=== PATIENT | male | born 1985 | race Hispanic/Latino ===

== ENCOUNTER 2023-11-13 16:11 | Emergency (ER) | payer SELFPAY ==
[2023-11-13 17:07] LABS: Absolute Basophils 0.1 K/uL (0-0.5); Absolute Eosinophils 0.2 K/uL (0-0.5); Absolute Lymphocytes (CBC) 2.9 K/uL (0.7-4.9); Absolute Monocytes 0.7 K/uL (0.1-1.3); Absolute Neutrophil 3.9 K/uL (1.8-8.0); Basophils % 0.7 % (0-1.3); Eosinophils % 2.9 % (0-4.4); Hematocrit 43.9 % (39.6-49.0); Hemoglobin 14.9 g/dL (13.6-17.9); Lymphocytes % 37.2 % (15.3-44.8); MCH 31.7 pg (27.0-35.0); MCHC 33.8 g/dL (32.0-36.0); MCV 93.6 fL (80-100); MPV 7.7 fL (7.6-11.3); Monocytes % 9.2 % (3.3-12.3); Nucleated Red Blood Cells % 0.1 % (0-0); Platelets 306 thou/uL (152-406); RBC Red Blood Cell Count 4.69 M/uL (4.33-5.43); Red Cell Distribution Width 13.5 % (12.1-15.2)
[2023-11-13 17:23] LABS: Anion Gap 7.9 mEq/L (5.0-15.0); Potassium 3.9 mEq/L (3.5-5.1); Troponin High Sensitivity 15.2 pg/mL (<58.9)
--- NOTE | 2023-11-13 18:11 | ER ---
Nurse's Notes [facility] Name: Brian Lazaro Age: 38 yrs Sex: Male : 1985 Arrival Date: 11/13/2023 Time: 16:11 Bed 8 Private MD: Diagnosis: Chest pain, unspecified Presentation: 11/12 16:28 Chief complaint: Patient states: he has been having chest pain yesterday, that has ap3 gotten progressively worse today. patient currently rates his pain as a 4/10 on the pain scale and reports the pain to be a "squeezing"pain. Coronavirus screen: At this time, the client does not indicate any symptoms associated with coronavirus-19. Ebola Screen: No symptoms or risks identified at this time. Initial Sepsis Screen: Does the patient meet any 2 criteria? No. Patient's initial sepsis screen is negative. Does the patient have a suspected source of infection? No. Patient's initial sepsis screen is negative. Risk Assessment: Do you want to hurt yourself or someone else? Patient reports no desire to harm self or others. Onset of symptoms was November 12, 2023. 16:28 Method Of Arrival: Ambulatory ap3 16:28 Acuity: KT 2 ap3 Triage Assessment: 16:30 General: Appears in no apparent distress. Behavior is calm, cooperative, appropriate ap3 for age. Pain: Complains of pain in chest Pain currently is 4 out of 10 on a pain scale. at worst was 6 out of 10 on a pain scale. Pain began 1 day ago. Neuro: Level of Consciousness is awake, alert, obeys commands, Oriented to person, place, time, situation, Gait is steady, Speech is normal. Cardiovascular: Denies chest pain, Patient's skin is warm and dry. Respiratory: Airway is patent Respiratory effort is even, unlabored, Respiratory pattern is regular, symmetrical. Historical: - Allergies: 16:30 No Known Allergies; ap3 - PMHx: 16:30 depressive disorder; Anxiety; ap3 - Immunization history:: Adult Immunizations unknown. - Infectious Disease History:: Denies. - Social history:: Smoking status: Patient/guardian denies using tobacco, Stopped _ months ago 9. - Family history:: not pertinent. - Hospitalizations: : No recent hospitalization is reported. Screenin:31 [facility] ED Fall Risk Assessment (Adult) History of falling in the last 3 months, ap3 including since admission No falls in past 3 months (0 pts) Confusion or Disorientation No (0 pts) Intoxicated or Sedated No (0 pts) Impaired Gait No (0 pts) Mobility Assist Device Used No (0 pt) Altered Elimination No (0 pt) Score/Fall Risk Level 0 - 2 = Low Risk Oriented to surroundings, Maintained a safe environment, Educated pt \\T\\ family on fall prevention, incl call for assistance when getting out of bed, Assessed \\T\\ reinforced patient's understanding of fall precautions, Hourly rounding (assess needs \\T\\ fall precautionary measures) done, Used ambulatory aids as needed (educated on \\T\\ assisted with), Used gait belt as appropriate. Abuse screen: Denies threats or abuse. Nutritional screening: No deficits noted. Tuberculosis screening: No symptoms or risk factors identified. Assessment: 17:02 Pain: Pain does not radiate. ap3 Vital Signs: 16:28 BP 146 / 85; Pulse 83; Resp 18; Temp 98.3; Pulse Ox 97% on R/A; Weight 86.18 kg; Height ap3 5 ft. 9 in. ; Pain 4/10; 16:28 Body Mass Index 28.06 (86.18 kg, 175.26 cm) ap3 16:28 Pain Scale: Adult ap3 ED Course: 16:13 Patient arrived in ED. mg5 16:15 Rodrigo Wayne MD is Attending Physician. rn 16:23 Lorenzo Vernon, RUY is Primary Nurse. bp 16:27 EKG done, by ED staff, reviewed by Rodrigo Wayne MD. ap3 16:30 Triage completed. ap3 16:31 Arm band placed on left wrist. ap3 16:32 Patient maintains SpO2 saturation greater than 95% on room air. ap3 16:39 Initial lab(s) drawn, by la, sent to lab. Inserted saline lock: 20 gauge in right ap3 antecubital area, using aseptic technique. Blood collected. 16:58 Khloe Sanchez, RN is Primary Nurse. ko1 17:01 Client placed on continuous cardiac and pulse oximetry monitoring. NIBP monitoring ap3 applied. packaging assembler on. Pulse ox on. NIBP on. 17:02 Patient has correct armband on for positive identification. Bed in low position. Call ap3 light in reach. Side rails up X 1. 18:23 XRAY Chest (1 view) In Process Unspecified. EDMS 18:40 No provider procedures requiring assistance completed. IV discontinued, intact, ap3 bleeding controlled, No redness/swelling at site. Pressure dressing applied. 18:40 Provided Education on: discharge instructions. ap3 Administered Medications: No medications were administered Medication: 17:02 VIS not applicable for this client. ap3 Outcome: 18:10 Discharge ordered by . rn 18:40 Discharged to home ambulatory, ap3 18:40 Condition: good 18:40 Discharge instructions given to patient, Instructed on discharge instructions, follow up and referral plans. Demonstrated understanding of instructions, follow-up care, 18:40 Patient left the ED. ap3 Signatures: Dispatcher [employer] EDMS Rodrigo Wayne MD MD rn Peltier, Brian, RN RN Christine Browne RN RN ap3 Khloe Sanchez RN RN davidson Naheed Guardado 5
--- NOTE | 2023-11-13 18:11 | EDPHYS ---
Physician Documentation [facility] Name: Brian Lazaro Age: 38 yrs Sex: Male : 1985 Arrival Date: 11/13/2023 Time: 16:11 Bed 8 Private MD: ED Physician Rodrigo Wayne HPI: 11/12 16:37 This 38 yrs old Male presents to ER via Ambulatory with complaints of Chest rn Pain. 16:37 The patient or guardian reports chest pain that is located primarily in the anterior rn chest wall, left. The pain does not radiate. Associated signs and symptoms: Pertinent negatives: abdominal pain, cough, diaphoresis, shortness of breath, syncope, vomiting. The chest pain is described as sharp. Duration: The patient or guardian reports multiple episodes, that are intermittent. Modifying factors: The symptoms are alleviated by nothing. the symptoms are aggravated by deep breath, palpation of area. Severity of pain: At its worst the pain was mild in the emergency department the pain is unchanged. The patient has not experienced similar symptoms in the past. The patient has not recently seen a physician. Patient reports left anterior chest pain, sharp stabbing, intermittent, worse with deep inspiration. No trauma. No fever. No cough. No history of DVT or PE. No family history of early ME or cardiac problems. Patient has history of anxiety and recent at home, feels like it might be more stress or anxiety. No hemoptysis. No abdominal pain.. Historical: - Allergies: 16:30 No Known Allergies; ap3 - PMHx: 16:30 depressive disorder; Anxiety; ap3 - Immunization history:: Adult Immunizations unknown. - Infectious Disease History:: Denies. - Social history:: Smoking status: Patient/guardian denies using tobacco, Stopped _ months ago 9. - Family history:: not pertinent. - Hospitalizations: : No recent hospitalization is reported. ROS: 16:37 Constitutional: Negative for fever, chills, and weight loss, Cardiovascular: Negative rn for palpitations, and edema, Respiratory: Negative for shortness of breath, cough, wheezing Abdomen/GI: Negative for abdominal pain, nausea, vomiting, diarrhea, and constipation, MS/Extremity: Negative for injury and deformity, Skin: Negative for injury, rash, and discoloration, Neuro: Negative for headache, weakness, numbness, tingling, and seizure, Exam: 16:37 Constitutional: This is a well developed, well nourished patient who is awake, alert, rn and in no acute distress. Cardiovascular: Regular rate and rhythm. No pulse deficits. Respiratory: No increased work of breathing, no retractions or nasal flaring. Abdomen/GI: Soft, non-tender MS/ Extremity: Pulses equal, no cyanosis Neuro: Awake and alert, GCS 15 16:42 ECG was reviewed by the Attending Physician. rn Vital Signs: 16:28 BP 146 / 85; Pulse 83; Resp 18; Temp 98.3; Pulse Ox 97% on R/A; Weight 86.18 kg; Height ap3 5 ft. 9 in. ; Pain 4/10; 16:28 Body Mass Index 28.06 (86.18 kg, 175.26 cm) ap3 16:28 Pain Scale: Adult ap3 MDM: 16:15 Patient medically screened. rn 18:08 Differential diagnosis: acute myocardial infarction, acute pericarditis, anxiety, chest rn wall pain, costochondritis, esophagitis, gastritis, pleurisy, pneumothorax. HEART Score: History: Slightly Suspicious (0), ECG: Normal (0), Age: < or = 45 years (0), Risk Factors: No Risk Factors Known (0), Troponin: < or = 1 x Normal Limit (0), Total Score = 0. Data reviewed: vital signs, nurses notes, lab test result(s), EKG, radiologic studies, plain films, and as a result, I will discharge patient. Counseling: I had a detailed discussion with the patient and/or guardian regarding the historical points, exam findings, and any diagnostic results supporting the discharge/admit diagnosis, lab results, radiology results, the need for outpatient follow up, to return to the emergency department if symptoms worsen or persist or if there are any questions or concerns that arise at home. Special discussion: Based on the patient's history, exam, and Dx evaluation, there is no indication for emergent intervention or inpatient Tx. It is understood by the patient/guardian that if the Sx's persist or worsen they need to return immediately for re-evaluation. I discussed with the patient/guardian in detail that at this point there is no indication for admission to the hospital. It is understood, however, that if the symptoms persist or worsen the patient needs to return immediately for re-evaluation. Based on the history and exam findings, there is no indication for further emergent testing or inpatient evaluation. I discussed with the patient/guardian the need to see the primary care provider for further evaluation of the symptoms. 18:08 ED course: No acute findings in workup today. Chest x-ray negative per Dr. Negron. rn Troponin negative. EKG negative for ischemia.. 11/12 17:02 Order name: Basic Metabolic Panel; Complete Time: 18:04 EDNM 11/12 17:02 Order name: Troponin High Sensitivity; Complete Time: 18:04 EDMS 11/12 17:02 Order name: CBC with Automated Diff; Complete Time: 18:04 EDNM 11/12 16:26 Order name: XRAY Chest (1 view) rn 11/12 16:26 Order name: IV Start; Complete Time: 16:39 rn 11/12 16:26 Order name: EKG - Nurse/Tech; Complete Time: 16:38 rn EC:42 Rate is 87 beats/min. Rhythm is regular. QRS [place] is Normal. [place] interval is normal. QRS rn interval is normal. QT interval is normal. No Q waves. T waves are Normal. No ST changes noted. Clinical impression: Normal ECG. Interpreted by me. Reviewed by me. Administered Medications: No medications were administered Disposition Summary: 11/13/23 18:10 Discharge Ordered Notes: Location: Home rn Problem: new rn Symptoms: have improved rn Condition: Stable rn Diagnosis - Chest pain, unspecified rn Followup: rn - With: Private Physician - When: As needed - Reason: Recheck today's complaints, Re-evaluation by your physician Discharge Instructions: - Discharge Summary Sheet rn - Nonspecific Chest Pain, Adult rn Forms: - Medication Reconciliation Form rn - Antibiotic rn burn - Prescription Opioid Use rn - Patient Portal Instructions rn - Leadership Thank You Letter rn Signatures: Dispatcher [employer] Rodrigo Mena MD MD rn Prokisch, Amanda, RN RN ap3 Corrections: (The following items were deleted from the chart) 17:07 17:07 Chest Single View+RAD.RAD.BRZ ordered. EDNM EDMS 18:22 17:07 CBC+H.LAB.BRZ ordered. EDNM EDMS 18:22 17:07 BASIC METABOLIC PANEL+C.LAB.BRZ ordered. EDNM EDMS 18:22 17:07 Troponin High Sensitivity+C.LAB.RAJATZ ordered. EDMS EDMS
--- NOTE | 2023-11-13 18:43 | RAD REPORT ---
EXAM DESCRIPTION: RAD - Chest Single View - 11/13/2023 6:21 pm CLINICAL HISTORY: CHEST PAIN COMPARISON: No comparisons FINDINGS: Lines: None. Lungs: No evidence of edema or pneumonia. Pleural: No significant pleural effusions or pneumothorax. Apparent elevation of the right hemidiaphr agm of uncertain chronicity. Cardiac: The heart size is within normal limits. Mediastinum: Within normal limits. Bones: No acute fractures. Other: None IMPRESSION: No acute cardiopulmonary disease. 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
[2023-11-14 05:47] VITALS: BP 146/85; TEMP 98.3; O2SAT 97
--- NOTE | 2023-11-15 13:12 | EKG ---
Test Date: 2023-11-13 Test Time: 16:26:08 [employer]: [employer] MEASUREMENT RESULTS: Intervals: Rate: 87 AK: 140 QRSD: 80 QT: 336 QTc: 404 [place]: P: 67 AK: 140 QRS: 86 T: 61 INTERPRETIVE STATEMENTS: Normal sinus rhythm Normal ECG No previous ECG available for comparison Electronically Signed On 11-15-23 13:06:19 CDT by George Sarabia
== END 2023-11-13 18:40 | disposition home or self-care (01) ==
LOC: ER 16:11
DX: R07.9 Chest pain, unspecified (principal)
CPT/HCPCS: 36415; 71045; 80048; 84484; 85025; 93005; 99284